=== PATIENT | female | born 1950 | race Caucasian/White ===

== ENCOUNTER → 2021-01-16 | Outpatient (CLI) | payer OTHER ==
[~2021-01-16] MED LIST: ALPRAZOLAM1 MG PO; AMLODIPINE BESYL5 MG PO; DICYCLOMINE HCL10 MG PO; HYDROCODON-ACE1 EAC6 PO; ISOSORBIDE MONO30 MG PO; METOPROLOL SUC100 MG PO; NARCAN4 MG; OMEPRAZOLE20 MG PO; PAXIL40 MG PO; RIZATRIPTAN10 M1 PO; TRIAMTERENE-HC1 EAC3 PO; [UNRECOGNIZED DRUG - OTHER] TOP
[2021-01-16 09:15] LABS: HEMOGLOBIN 13.9 gm/dl (12.3-15.3); RED BLOOD COUNT 4.38 M/UL (4.00-5.10); WHITE BLOOD COUNT 7.1 K/UL (4.5-11.0)
== END ==
LOC: EDSTATUS 08:00 → OPSV2 08:00
PROVIDERS: Orthopaedic Surgery
DX: Z01.818 Encounter for other preprocedural examination (principal); M19.012 Primary osteoarthritis, left shoulder; R73.03 Prediabetes; Z88.2 Allergy status to sulfonamides; R94.31 Abnormal electrocardiogram [ECG] [EKG]
CPT/HCPCS: 36415; 80048; 81001; 83036; 85025; 87081; 87086; 93005

== ENCOUNTER → 2022-01-27 | Outpatient (CLI) | payer BC | LOC: KOH-I 11:30 | DX: Z01.818 Encounter for other preprocedural examination (principal); M19.012 Primary osteoarthritis, left shoulder | CPT/HCPCS: 73200 ==

== ENCOUNTER → 2022-01-30 | Outpatient (CLI) | payer BC ==
[~2022-01-30] MED LIST changes: +ALEVE220 MG PO; +IBU800 MG PO; +PAXIL20 MG PO; +PERCOCET 7.5-31 EACH PO; +VASCEPA1 GM PO; +ZOFRAN 4 MG TAB4 MG PO
[2022-01-30 11:04] LABS: HEMOGLOBIN 14.4 gm/dl (12.3-15.3); RED BLOOD COUNT 4.58 M/UL (4.00-5.10); WHITE BLOOD COUNT 8.2 K/UL (4.5-11.0)
[2022-01-30 11:29] LABS: BUN/CREATININE RATIO 22 (0-10)
== END ==
LOC: OPSV2 10:00 → EDSTATUS 10:00 → OPSV2 10:09
PROVIDERS: Orthopaedic Surgery
DX: Z01.818 Encounter for other preprocedural examination (principal); M19.012 Primary osteoarthritis, left shoulder
CPT/HCPCS: 36415; 80048; 85027; 93005

== ENCOUNTER → 2022-02-11 | Outpatient (CLI) | payer MEDICARE ==
[~2022-02-11] MED LIST changes: +ASPIRIN81 MG PO; +CYCLOBENZAPRINE10 MG PO
== END ==
LOC: LAB 13:12
PROVIDERS: Orthopaedic Surgery
DX: Z01.812 Encounter for preprocedural laboratory examination (principal)
CPT/HCPCS: 36415; 80048; 86850; 86900; 86901

== ENCOUNTER 2022-02-12 11:02 | Day surgery (SDC) | payer MEDICARE ==
[~2022-02-12] VITALS: Ht 165.1 cm; Wt 114.3 kg
[~2022-02-12 11:02] MED LIST changes: -ASPIRIN81 MG PO; -CYCLOBENZAPRINE10 MG PO
[2022-02-12] MEDS ORDERED: ASPIRIN81 MG PO (12:18)
[2022-02-12] MEDS ORDERED: CYCLOBENZAPRINE10 MG PO (12:20)
[2022-02-13 07:02] LABS: HEMOGLOBIN 12.6 gm/dl (12.3-15.3); RED BLOOD COUNT 4.05 M/UL (4.00-5.10)
== END 2022-02-13 12:18 | disposition home or self-care (01) ==
LOC: M/S 11:02 → OR 11:02 → M/S 17:30 → OR 02-13 12:18
PROVIDERS: Physician Assistant
DX: M19.012 Primary osteoarthritis, left shoulder (principal); M19.011 Primary osteoarthritis, right shoulder; M24.012 Loose body in left shoulder; N17.9 Acute kidney failure, unspecified; I10 Essential (primary) hypertension; J45.909 Unspecified asthma, uncomplicated; K21.9 Gastro-esophageal reflux disease without esophagitis; E78.5 Hyperlipidemia, unspecified; E66.01 Morbid (severe) obesity due to excess calories; Z68.41 Body mass index [BMI] 40.0-44.9, adult; Z88.0 Allergy status to penicillin; Z88.2 Allergy status to sulfonamides; Z79.82 Long term (current) use of aspirin
CPT/HCPCS: 73020; 80048; 82962; 85025; 97162; 97165; 97535; C1713; C1776; J0690; J1100; J1170; J1885; J2001; J2250; J2405; J2704; J2710; J2795; J3370